=== PATIENT | female | born 1960 | race Caucasian/White ===

== ENCOUNTER 2020-10-11 19:29 | Emergency (ER) | payer OTHER ==
[~2020-10-11] VITALS: Ht 175.3 cm; Wt 188.7 kg
[~2020-10-11 19:29] MED LIST: ALBU18HF2 IH; ATEN25TA PO; ESTR1TAB21 PO; FURO20TA4 PO; GLIP5TAB13 PO; HYDR-4354 PO; LEVO175T2 PO; LOSA50TA39 PO; METF-440 PO; NPH,100V SQ; PROG100C15 PO; ZOLP5TAB8 PO
[2020-10-11 20:00] LABS: BASOPHILS # (AUTO) 0.1 K/uL (0.0-0.2); BASOPHILS % (AUTO) 1.2 % (0.0-2.0); EOSINOPHILS % (AUTO) 1.5 % (0.0-6.0); HEMATOCRIT 33 % (33-45); HEMOGLOBIN 10.4 g/dL (11.5-14.8); LYMPHOCYTES # (AUTO) 1.1 K/uL (0.8-4.8); LYMPHOCYTES % (AUTO) 9.7 % (20.0-44.0); MEAN CORPUSCULAR HGB CONC 32 g/dl (31.0-36.0); MEAN CORPUSCULAR VOLUME 85 fL (82-100); MONOCYTES # (AUTO) 0.7 K/uL (0.1-1.30); MONOCYTES % (AUTO) 6.5 % (2.0-12.0); NEUTROPHILS # (AUTO) 9.1 K/uL (1.8-8.9); NEUTROPHILS % (AUTO) 81.1 % (43.0-81.0); PLATELET COUNT (AUTO) 285 K/uL (150-450); RED BLOOD CELL COUNT(AUTO) 3.91 MIL/uL (4.0-5.2); WHITE BLOOD COUNT (AUTO) 11.2 K/uL (4.3-11.0)
--- NOTE | 2020-10-11 20:02 | NUR ---
VILMA FROM HOME TO ER BED 7. AAOX4. NOT IN DISTRESS. BROUGHT IN FOR LOWER ABD PAIN, SWELLING, REDNESS AND TENDERNESS TO TOUCH. PT ALSO VERBALIZES THAT SHE GOT SOB WHEN SHE DOES ACTIVITY. PT ALSO REPORTS THAT SHE NOTED THAT HER LOWER LEG IS GETTING SWOLLEN. PT IS BASELINE O2 USER AT HOME. SHE IS CURRENTLY ON 2LPM VIA NC, SATTING @ 90-94%. WAS AT THE BEDSIDE FOR EVAL. ORDERS RECEIVED, NOTED AND CARRIED OUT.
[2020-10-11 20:09] LABS: CALCIUM, SERUM 8.3 mg/dL (8.5-10.1); CREATININE 0.8 mg/dL (0.6-1.3); POTASSIUM 4.1 mmol/L (3.5-5.1)
[2020-10-11 20:22] LABS: ALBUMIN 2.9 g/dL (3.4-5.0); BILIRUBIN,DIRECT 0.2 mg/dL (0.0-0.2); BILIRUBIN,TOTAL 0.5 mg/dL (0.2-1.0); TOTAL PROTEIN, SERUM 6.7 g/dL (6.4-8.2)
--- NOTE | 2020-10-11 20:45 | NUR ---
PAGED EPRP PER DR GAYLA DELGADILLO
--- NOTE | 2020-10-11 20:46 | NUR ---
DR GRAHAM ON THE PHONE W/ Marion CRUZ FROM [place]
--- NOTE | 2020-10-11 22:14 | NUR ---
PT GOT ACCEPTED AT [facility] BY DR RILEY. PT GOING TO ER. # FOR REPORT: [phone]
[2020-10-11 22:19] VITALS: BP 143/68
--- NOTE | 2020-10-11 22:24 | NUR ---
REPORT GIVEN TO MARTA GLOVER FOR KAUSHIK AT THE [facility] ER
--- NOTE | 2020-10-11 22:30 | NUR ---
PT LEFT ON [facility] WITH 4 EMT FOR BARIATRIC [place] TRANSPORT TO [facility]. PT IS IN STABLE CONDITION FOR TRANSPORT. NAD NOTED PRIOR TO DEPARTURE
== END 2020-10-11 22:41 | disposition short-term general hospital (02) ==
LOC: ER 19:30
DX: R10.30 Lower abdominal pain, unspecified (principal); E66.01 Morbid (severe) obesity due to excess calories; Z68.44 Body mass index [BMI] 60.0-69.9, adult; R06.02 Shortness of breath; Z20.822 Contact with and (suspected) exposure to COVID-19; I44.7 Left bundle-branch block, unspecified; D68.1 Hereditary factor XI deficiency; G47.33 Obstructive sleep apnea (adult) (pediatric); I10 Essential (primary) hypertension; E89.0 Postprocedural hypothyroidism; Z88.0 Allergy status to penicillin; M19.90 Unspecified osteoarthritis, unspecified site; E11.9 Type 2 diabetes mellitus without complications; Z79.84 Long term (current) use of oral hypoglycemic drugs
CPT/HCPCS: 36415; 71045; 80048; 80076; 83880; 84484; 85025; 87426; 93005; 99285; C9803

== ENCOUNTER 2020-11-04 00:45 | Emergency (ER) | payer OTHER ==
[~2020-11-04] VITALS: Ht 167.6 cm; Wt 197.3 kg
--- NOTE | 2020-11-04 00:45 | NUR ---
PT AAOX4. BIBRA FROM HOME FOR WORSENING ABD PAIN AND SOB. PLACED IN BED 11 ON MONITOR AND PULSE OX. ON 2L NC. AWAITING ORDERS.
[2020-11-04] MEDS ORDERED: KETOROLAC TROMETHAMINE 15 MG/ML VIAL ONE (01:23)
[2020-11-04 01:26] LABS: BASOPHILS # (AUTO) 0.2 K/uL (0.0-0.2); BASOPHILS % (AUTO) 1.1 % (0.0-2.0); EOSINOPHILS % (AUTO) 1.5 % (0.0-6.0); HEMATOCRIT 32 % (33-45); HEMOGLOBIN 9.8 g/dL (11.5-14.8); LYMPHOCYTES # (AUTO) 1.4 K/uL (0.8-4.8); LYMPHOCYTES % (AUTO) 10.2 % (20.0-44.0); MEAN CORPUSCULAR HGB CONC 31 g/dl (31.0-36.0); MEAN CORPUSCULAR VOLUME 85 fL (82-100); MONOCYTES % (AUTO) 7.6 % (2.0-12.0); NEUTROPHILS # (AUTO) 10.9 K/uL (1.8-8.9); NEUTROPHILS % (AUTO) 79.6 % (43.0-81.0); PLATELET COUNT (AUTO) 397 K/uL (150-450); RED BLOOD CELL COUNT(AUTO) 3.73 MIL/uL (4.0-5.2); WHITE BLOOD COUNT (AUTO) 13.7 K/uL (4.3-11.0)
[2020-11-04] MEDS: KETOROLAC TROMETHAMINE INJ 30 MG/ML VIAL IV ONE (01:26)
[2020-11-04 01:34] LABS: CALCIUM, SERUM 7.7 mg/dL (8.5-10.1); CARBON DIOXIDE 35 mmol/L (21-32); CHLORIDE 93 mmol/L (98-107); CREATININE 1.1 mg/dL (0.6-1.3); GLUCOSE 76 mg/dL (74-106); POTASSIUM 5.4 mmol/L (3.5-5.1); SODIUM SERUM 130 mmol/L (136-145); UREA NITROGEN, BLOOD 26 mg/dL (7-18)
[2020-11-04 01:50] LABS: ALANINE AMINOTRANSFERASE 19 U/L (12-78); ALKALINE PHOSPHATASE 110 U/L (46-116); ASPARTATE AMINOTRANSFERASE 23 U/L (15-37); BILIRUBIN,DIRECT 0.3 mg/dL (0.0-0.2); BILIRUBIN,TOTAL 0.6 mg/dL (0.2-1.0); TOTAL PROTEIN, SERUM 6.4 g/dL (6.4-8.2)
--- NOTE | 2020-11-04 02:39 | NUR ---
AMBULATED TO THE RESTROOM AND BACK.
--- NOTE | 2020-11-04 02:49 | NUR ---
MANJU EPRP PAGED PER DR SOFIA.
[2020-11-04] MEDS ORDERED: MORPHINE SULFATE INJ 4 MG/ML DISP.SYRIN ONE (03:03)
[2020-11-04] MEDS: MORPHINE SULFATE INJ 2 MG/ML DISP.SYRIN IV ONE (03:06)
--- NOTE | 2020-11-04 03:30 | NUR ---
Macho ni in ED - 11/04/20 at 0331 by [facility] TRANSFER INFORMATION PT ACCEPTED AT [facility] CLYDE BREWER PHONE NUMBER FOR REPORT [facility]
--- NOTE | 2020-11-04 03:31 | NUR ---
TRANSFER INFORMATION PT ACCEPTED AT [facility] ER ACCEPTING MD BREWER PHONE NUMBER FOR REPORT [facility] BARIATRIC TRANSPORT ETA [phone]
[2020-11-04 03:44] VITALS: BP 125/53
--- NOTE | 2020-11-04 03:49 | NUR ---
REPORT GIVEN TO JAIRON LOZANO FOR KAUSHIK
--- NOTE | 2020-11-04 09:21 | NUR ---
TRANSPORTED TO [facility], STABLE CONDITION.
== END 2020-11-04 09:23 | disposition short-term general hospital (02) ==
LOC: ER 00:46
DX: R10.31 Right lower quadrant pain (principal); R06.02 Shortness of breath; E66.01 Morbid (severe) obesity due to excess calories; R60.9 Edema, unspecified; I11.0 Hypertensive heart disease with heart failure; I50.9 Heart failure, unspecified; E11.9 Type 2 diabetes mellitus without complications; E03.9 Hypothyroidism, unspecified; Z68.45 Body mass index [BMI] 70 or greater, adult; Z86.19 Personal history of other infectious and parasitic diseases; Z98.890 Other specified postprocedural states; Z88.0 Allergy status to penicillin; Z79.84 Long term (current) use of oral hypoglycemic drugs; Z79.899 Other long term (current) drug therapy
CPT/HCPCS: 36415; 71045; 76705; 80048; 80076; 83880; 84484; 85025; 96374; 96375; 99285; J1885; J2270

== ENCOUNTER 2022-03-13 19:15 | Inpatient (IN) | payer OTHER ==
[~2022-03-13] VITALS: Ht 167.6 cm; Wt 182.8 kg
--- NOTE | 2022-03-13 19:30 | NUR ---
VILMA FROM HOME C/O SOB STARTED TODAY. PLACED ON BED, AAOX4, DYSPNEIC RR- 20 SATURATING AT 96% WITH 2LIT O2 VIA NC.
--- NOTE | 2022-03-13 19:56 | NUR ---
BLOOD DRAWN AND SENT TO LAB
--- NOTE | 2022-03-13 20:09 | NUR ---
SWAB FOR COVID19 SENT TO LAB
[2022-03-13 20:33] LABS: BASOPHILS # (AUTO) 0.1 K/uL (0.0-0.2); BASOPHILS % (AUTO) 0.5 % (0.0-2.0); EOSINOPHILS % (AUTO) 2.3 % (0.0-6.0); HEMATOCRIT 37 % (33-45); HEMOGLOBIN 11.2 g/dL (11.5-14.8); LYMPHOCYTES # (AUTO) 0.9 K/uL (0.8-4.8); LYMPHOCYTES % (AUTO) 7.9 % (20.0-44.0); MEAN CORPUSCULAR HGB CONC 31 g/dl (31.0-36.0); MEAN CORPUSCULAR VOLUME 86 fL (82-100); MONOCYTES # (AUTO) 0.9 K/uL (0.1-1.30); MONOCYTES % (AUTO) 7.6 % (2.0-12.0); NEUTROPHILS # (AUTO) 9.2 K/uL (1.8-8.9); NEUTROPHILS % (AUTO) 81.7 % (43.0-81.0); PLATELET COUNT (AUTO) 309 K/uL (150-450); WHITE BLOOD COUNT (AUTO) 11.2 K/uL (4.3-11.0)
[2022-03-13 20:37] LABS: CALCIUM, SERUM 9.4 mg/dL (8.5-10.1); CHLORIDE 99 mmol/L (98-107); CREATININE 1.1 mg/dL (0.6-1.3); GLUCOSE 130 mg/dL (74-106); POTASSIUM 4.6 mmol/L (3.5-5.1); SODIUM SERUM 138 mmol/L (136-145); UREA NITROGEN, BLOOD 25 mg/dL (7-18)
--- NOTE | 2022-03-13 20:46 | NUR ---
TROP 104
[2022-03-13 20:49] LABS: ALANINE AMINOTRANSFERASE 12 U/L (12-78); ALBUMIN 3.5 g/dL (3.4-5.0); ALKALINE PHOSPHATASE 167 U/L (46-116); ASPARTATE AMINOTRANSFERASE 21 U/L (15-37); BILIRUBIN,DIRECT 0.2 mg/dL (0.0-0.2); BILIRUBIN,TOTAL 0.4 mg/dL (0.2-1.0); TOTAL PROTEIN, SERUM 7.3 g/dL (6.4-8.2)
[2022-03-13 20:53] LABS: CARBON DIOXIDE 41 mmol/L (21-32)
[2022-03-13] MEDS ORDERED: ASPIRIN 81 MG TAB.CHEW PO ONE (21:00)
[2022-03-13] MEDS ORDERED: ASPIRIN 81 MG TAB.CHEW ONE (21:02)
[2022-03-13] MEDS ORDERED: FUROSEMIDE 40 MG/4 ML VIAL IV ONE (21:30)
[2022-03-13] MEDS ORDERED: FUROSEMIDE 40 MG/4 ML VIAL ONE (22:02)
--- NOTE | 2022-03-13 22:02 | NUR ---
RT CALLED FOR ABG
--- NOTE | 2022-03-13 22:33 | NUR ---
STRAIGHT CATH INSERTED. PT IS COMFORTABLE.
--- NOTE | 2022-03-13 23:01 | NUR ---
PAGED EPRP DOCTOR
--- NOTE | 2022-03-13 23:21 | NUR ---
DR FAN ON THE PHONE WITH [facility]
[2022-03-14] VITALS (11 sets, daily range): BP systolic 111–129; BP diastolic 55–81
[2022-03-14] MEDS ORDERED: MAG HYDROX/AL HYDROX/SIMETH 30 ML UDC PO PRN
[2022-03-14] MEDS ORDERED: MAGNESIUM HYDROXIDE 30 ML UDC PO PRN
[2022-03-14] MEDS ORDERED: *INSULIN REGULAR(HUMULIN R)HUM 100 UNIT/ML VIAL SQ PRN
[2022-03-14] MEDS ORDERED: ACETAMINOPHEN 325 MG TABLET PO PRN
[2022-03-14] MEDS ORDERED: TEMAZEPAM 15 MG CAPSULE PO PRN
[2022-03-14] MEDS ORDERED: Z GUARD REMEDY 4 OZ OINT TP PRN
[2022-03-14] MEDS ORDERED: ONDANSETRON HCL/PF 4 MG/2 ML VIAL IVP PRN
[2022-03-14] MEDS ORDERED: INSULIN REGULAR, HUMAN 100 UNIT/ML 3 ML VIAL SQ PRN
--- NOTE | 2022-03-14 00:54 | NUR ---
PHOTOGRAPHIC ENLARGER OPERATOR AT PT'S BEDSIDE
[2022-03-14] MEDS ORDERED: ALBUTEROL FS 2.5 MG/3 ML VIAL.NEB NEB PRN (01:30)
[2022-03-14] MEDS ORDERED: ENOXAPARIN SODIUM 150 MG/ML DISP.SYRIN SQ ONE (01:30)
--- NOTE | 2022-03-14 01:41 | NUR ---
NEEDS ATTENDED. POSITIONED COMFORTABLY
[2022-03-14] MEDS ORDERED: ENOXAPARIN SODIUM 60 MG/0.6 ML DISP.SYRIN SQ ONE (01:54)
[2022-03-14] MEDS ORDERED: ENOXAPARIN SODIUM 100 MG/ML DISP.SYRIN SQ ONE (01:54)
--- NOTE | 2022-03-14 01:59 | NUR ---
CLARIFIED WITH DELL ARRIAGA ABOUT THE DOSE OF LOVENOX. SHE ORDERED TO GIVE LOVENOX 150MG SQ
--- NOTE | 2022-03-14 03:50 | NUR ---
ABG DONE AT BEDSIDE
[2022-03-14 03:56] LABS: ABG BASE EXCESS 7.1 mmol/L; ABG PCO2 81.5 mmHg (35.0-45.0); ABG PH 7.269 (7.350-7.450); COHb 0.7 % (0.5-1.5); MetHb 0.3 % (0.0-1.5); O2Hb 96.9 % (94.0-97.0); SITE, ABG Right Radial; VENT MODE, BG ST 15/5 16 40%
[2022-03-14 04:29] LABS: BASOPHILS % (MANUAL) 0 % (0.0-2.0); EOSINOPHILS % (MANUAL) 3 % (0-4)
[2022-03-14 04:30] LABS: BAND % (MANUAL) 3 % (0.0-5.0); LYMPHOCYTES % (MANUAL) 8 % (16-48); NEUTROPHILS % (MANUAL) 77 (42-76)
[2022-03-14 04:31] LABS: MONOCYTES % (MANUAL) 9 % (0-11.0)
[2022-03-14 05:09] LABS: BASOPHILS # (AUTO) 0.1 K/uL (0.0-0.2); BASOPHILS % (AUTO) 0.7 % (0.0-2.0); EOSINOPHILS % (AUTO) 2.7 % (0.0-6.0); HEMATOCRIT 35 % (33-45); HEMOGLOBIN 10.7 g/dL (11.5-14.8); LYMPHOCYTES # (AUTO) 1.1 K/uL (0.8-4.8); LYMPHOCYTES % (AUTO) 13.4 % (20.0-44.0); MEAN CORPUSCULAR HGB CONC 31 g/dl (31.0-36.0); MEAN CORPUSCULAR VOLUME 86 fL (82-100); MONOCYTES # (AUTO) 0.7 K/uL (0.1-1.30); MONOCYTES % (AUTO) 8.7 % (2.0-12.0); NEUTROPHILS # (AUTO) 6.3 K/uL (1.8-8.9); NEUTROPHILS % (AUTO) 74.5 % (43.0-81.0); PLATELET COUNT (AUTO) 285 K/uL (150-450); RED BLOOD CELL COUNT(AUTO) 4.01 MIL/uL (4.0-5.2); WHITE BLOOD COUNT (AUTO) 8.5 K/uL (4.3-11.0)
[2022-03-14 05:24] LABS: ALBUMIN 3.2 g/dL (3.4-5.0); BILIRUBIN,TOTAL 0.5 mg/dL (0.2-1.0); MAGNESIUM 1.7 mg/dL (1.8-2.4); PHOSPHORUS 5.8 mg/dL (2.5-4.9); POTASSIUM 4.3 mmol/L (3.5-5.1); TOTAL PROTEIN, SERUM 6.9 g/dL (6.4-8.2)
--- NOTE | 2022-03-14 05:39 | NUR ---
POSITIONED COMFORTABLY. NEEDS ATTENDED
[2022-03-14] MEDS ORDERED: HYDROCODONE/APAP 10/325MG TABLET PO PRN ×2 (07:00)
[2022-03-14] MEDS ORDERED: HYDROCODONE/APAP 5/325MG TABLET PO PRN (07:00)
[2022-03-14] MEDS ORDERED: glipiZIDE 5 MG TABLET PO SCH (07:30)
[2022-03-14] MEDS: glipiZIDE 5 MG TABLET PO SCH ×2 (07:30→16:30)
[2022-03-14] MEDS: LEVOTHYROXINE SODIUM 175 MCG TABLET PO SCH (07:30)
[2022-03-14] MEDS: METFORMIN 500 MG TABLET PO SCH ×2 (08:00→17:38)
[2022-03-14] MEDS ORDERED: HYDROCODONE/APAP 10/325MG TABLET ONE (08:02)
[2022-03-14] MEDS: BLOOD SUGAR DIAGNOSTIC 1 EACH STRIP VI SCH ×4 (08:04→21:48)
--- NOTE | 2022-03-14 08:21 | NUR ---
[facility] BED ORDERED
[2022-03-14] MEDS ORDERED: METO25TA6 PO (08:24)
[2022-03-14] MEDS ORDERED: FURO20TA4 PO (08:24)
[2022-03-14] MEDS ORDERED: TRAZ-182 PO (08:24)
[2022-03-14] MEDS ORDERED: LEVO200T8 PO (08:24)
[2022-03-14] MEDS ORDERED: ASPI-1420 PO (08:24)
[2022-03-14] MEDS ORDERED: COLL30OI TP (08:24)
[2022-03-14] MEDS ORDERED: NYST15PO4 TP (08:24)
[2022-03-14] MEDS ORDERED: FERR325T23 PO (08:25)
[2022-03-14] MEDS ORDERED: THIO300C PO (08:25)
[2022-03-14] MEDS ORDERED: DOCU-141 PO (08:25)
[2022-03-14] MEDS ORDERED: BISA5TAB10 PO (08:25)
[2022-03-14] MEDS ORDERED: ACET-2605 PO (08:25)
[2022-03-14] MEDS ORDERED: MULT1TAB70 PO (08:25)
[2022-03-14] MEDS ORDERED: KETO125S TP (08:25)
[2022-03-14] MEDS ORDERED: VITA1TAB56 PO (08:25)
[2022-03-14] MEDS ORDERED: METFORMIN 500 MG TABLET ONE (08:27)
--- NOTE | 2022-03-14 08:27 | NUR ---
room 255
--- NOTE | 2022-03-14 08:33 | NUR ---
report given to jb pendleton
[2022-03-14] MEDS: PANTOPRAZOLE 40 MG VIAL IV SCH (08:51)
[2022-03-14] MEDS ORDERED: PROGESTERONE MICRONIZED PO SCH (09:00)
[2022-03-14] MEDS: ESTRADIOL 1 MG TABLET PO SCH (09:00)
[2022-03-14] MEDS: LOSARTAN POTASSIUM 50 MG TABLET PO SCH (09:00)
[2022-03-14] MEDS: ATENOLOL 25 MG TABLET PO SCH (09:00)
--- NOTE | 2022-03-14 09:18 | NUR ---
moved to inpatient room per acls protocol.
--- NOTE | 2022-03-14 09:23 | NUR ---
Admit to ICU for SOB. Respiratory Distress Resolved. On 2L NC O2 Sat 98% VSS. Pt AAOx4. Follow up Cardiac Work up for elevated Troponin. Cont with Plan of care
[2022-03-14] MEDS: DEXTROSE 50%-WATER 50 ML DISP.SYRIN IV PRN (11:17)
[2022-03-14] MEDS ORDERED: Magnesium 1GM/D5W 100ML PREMIX 200 ML IV ONE (11:34)
[2022-03-14] MEDS: Magnesium 1GM/D5W 100ML PREMIX 100 ML IV SCH ×2 (11:45→12:47)
[2022-03-14 12:08] LABS: ABG BASE EXCESS 3.4 mmol/L; ABG OXYGEN SATURATION 95.5 % (92.0-98.5); ABG PCO2 63.9 mmHg (35.0-45.0); ABG PH 7.306 (7.350-7.450); ABG PO2 88.3 mmHg (75.0-100.0); AaDO2 50.5 mmHg; COHb 1.5 % (0.5-1.5); MetHb 0.1 % (0.0-1.5); SITE, ABG Right Radial; VENT MODE, BG 20/5 RR16 30%
[2022-03-14] MEDS: ENOXAPARIN SODIUM 120 MG/0.8 ML DISP.SYRIN SQ SCH (14:59)
--- NOTE | 2022-03-14 18:00 | NUR ---
José Luis when more stable Admit to ICU Continue rescue BiPAP. wean off Bipap when able Sleep apnea noted. Lovenox 1 mg/kg administered as ordered Cardiology consult - Dr Pyle. Pt with positive Troponin Pulm consult done by Dr Larkin. Recommendations and orders noted Episodes of hypoglycemia. Resume Diet. Sliding scale insulin Adequate Intake and output. Huddleston to gravity. Slight trauma noted. Inserted in ED Follow up Labs. Mag replaced as needed Cont with plan of care.
--- NOTE | 2022-03-14 19:30 | NUR ---
RN NOTE RECEIVED PT IN BED, AWAKE, A/O X 4. ABLE TO VERBALIZE NEEDS. CURRENTLY ON O2 VIA NC @ 2LPM. PT TOLERATING WELL, O2 SAT @ 95%. TELE MONITOR SHOWS SR WITH HR IN THE 90s. NO S/SX OF ACUTE RESPI DISTRESS NOTED AT THIS TIME. NO SOB, BREATHING IS EVEN AND UNLABORED. IV ACCESS NOTED ON DAVID ML AND LAC, NO FLUIDS INFUSING. HEATH CATH IN PLACE DRAINING YELLOW URINE BY GRAVITY. ALL SAFETY MEASURES IN PLACE: BED LOCKED IN LOW POSITION, BED ALARM ON, SR UP X 2, CALL LIGHT WITHIN REACH. WILL CONTINUE TO MONITOR PT.
[2022-03-14] MEDS: FUROSEMIDE 20 MG/2 ML VIAL IV SCH (19:37)
[2022-03-14] MEDS: HYDROCODONE/APAP 5/325MG TABLET PO PRN (20:15)
--- NOTE | 2022-03-14 20:30 | NUR ---
RN NOTE PT COMPLAINING OF PAIN IN HER LOWER LEGS. WANTS NORCO TO CALM HER NERVES. GAVE MED ORDERED. WILL CONTINUE TO MONITOR.
--- NOTE | 2022-03-14 22:00 | NUR ---
RN NOTE PT TRANSFERRED TO A [facility] BED.
[2022-03-15] VITALS (24 sets, daily range): BP systolic 93–131; BP diastolic 47–85
[2022-03-15] MEDS: ENOXAPARIN SODIUM 120 MG/0.8 ML DISP.SYRIN SQ SCH ×2 (01:37→14:00)
--- NOTE | 2022-03-15 01:41 | NUR ---
RN NOTE NEW TROPONIN RESULT: 63, DOWN FROM 101.
[2022-03-15] MEDS: HYDROCODONE/APAP 5/325MG TABLET PO PRN ×4 (02:15→22:21)
[2022-03-15 05:41] LABS: BASOPHILS # (AUTO) 0.1 K/uL (0.0-0.2); BASOPHILS % (AUTO) 0.9 % (0.0-2.0); EOSINOPHILS % (AUTO) 3.2 % (0.0-6.0); HEMATOCRIT 34 % (33-45); HEMOGLOBIN 10.4 g/dL (11.5-14.8); LYMPHOCYTES # (AUTO) 1.7 K/uL (0.8-4.8); MEAN CORPUSCULAR HGB CONC 31 g/dl (31.0-36.0); MEAN CORPUSCULAR VOLUME 86 fL (82-100); MONOCYTES # (AUTO) 0.1 K/uL (0.1-1.30); MONOCYTES % (AUTO) 0.9 % (2.0-12.0); NEUTROPHILS # (AUTO) 7.6 K/uL (1.8-8.9); PLATELET COUNT (AUTO) 264 K/uL (150-450); RED BLOOD CELL COUNT(AUTO) 3.91 MIL/uL (4.0-5.2); WHITE BLOOD COUNT (AUTO) 9.8 K/uL (4.3-11.0)
[2022-03-15 05:52] LABS: ALBUMIN 3.1 g/dL (3.4-5.0); BILIRUBIN,TOTAL 0.5 mg/dL (0.2-1.0); CALCIUM, SERUM 8.1 mg/dL (8.5-10.1); CREATININE 0.9 mg/dL (0.6-1.3); POTASSIUM 4.5 mmol/L (3.5-5.1); TOTAL PROTEIN, SERUM 6.7 g/dL (6.4-8.2)
--- NOTE | 2022-03-15 06:28 | NUR ---
RN NOTE NO SIGNIFICANT CHANGE T/O THE NIGHT. PT DESATS WHEN ASLEEP EVEN WITH BIPAP ON. PT SAYS SHE FEELS NO PAIN WHATSOEVER WHEN IT HAPPENS. KEPT BIPAP ON THE WHOLE NIGHT TILL 6 AM TODAY. ALL OTHER VS STABLE. ALL DUE MEDS GIVEN. NEEDS ATTENDED TO. PM CARE DONE. TURNED AND REPOSITIONED. WILL ENDORSE TO AM SHIFT NURSE FOR KAUSHIK.
[2022-03-15] MEDS: LEVOTHYROXINE SODIUM 175 MCG TABLET PO SCH (07:33)
[2022-03-15] MEDS: METFORMIN 500 MG TABLET PO SCH ×2 (07:34→17:41)
[2022-03-15] MEDS: BLOOD SUGAR DIAGNOSTIC 1 EACH STRIP VI SCH ×3 (07:34→17:41)
[2022-03-15] MEDS: glipiZIDE 5 MG TABLET PO SCH ×2 (07:34→16:20)
[2022-03-15] MEDS: ESTRADIOL 1 MG TABLET PO SCH (08:29)
[2022-03-15] MEDS: FUROSEMIDE 20 MG/2 ML VIAL IV SCH ×2 (08:29→16:20)
[2022-03-15] MEDS: ATENOLOL 25 MG TABLET PO SCH (08:29)
[2022-03-15] MEDS: PANTOPRAZOLE 40 MG VIAL IV SCH (08:30)
[2022-03-15] MEDS: LOSARTAN POTASSIUM 50 MG TABLET PO SCH (08:30)
[2022-03-15 09:31] LABS: ABG BASE EXCESS 9.5 mmol/L; ABG OXYGEN SATURATION 92.9 % (92.0-98.5); ABG PCO2 69.8 mmHg (35.0-45.0); ABG PH 7.347 (7.350-7.450); AaDO2 47.3 mmHg; COHb 1.6 % (0.5-1.5); MetHb 0.1 % (0.0-1.5); O2Hb 91.3 % (94.0-97.0); SITE, ABG Right Radial; VENT MODE, BG Nasal Cannula
[2022-03-15] MEDS ORDERED: ESTR1TAB28 PO (11:01)
[2022-03-15] MEDS ORDERED: APIX5TAB PO (11:01)
[2022-03-15] MEDS ORDERED: ATEN25TA PO (11:01)
--- NOTE | 2022-03-15 12:40 | NUR ---
Awaiting call back from [place] transfer center @ [phone] Elbert @ this time. for transfer to [place]. Pt remains stable for transfer. Discharge order in place. Cont with plan of care
--- NOTE | 2022-03-15 14:49 | NUR ---
Held Lovenox. Hematuria. Slight bleeding / "Streaks of Blood" noted in Huddleston Cath
[2022-03-15] MEDS: DEXTROSE 50%-WATER 50 ML DISP.SYRIN IV PRN (17:35)
--- NOTE | 2022-03-15 17:41 | NUR ---
Metformin held secondary to episodes of hypoglycemia. Pt remains awake alert oriented. Able to tolerate Juice PO. D50 IVP given per protocol
--- NOTE | 2022-03-15 18:34 | NUR ---
Awaiting [facility] transfer when bed available. cleared by Dr Larkin. Discharged to [facility] per Dr Hernandez Remains in ICU @ this time. Continue nocturnal BiPAP. tolerate 2L NC in am while awake Sleep apnea noted. Cont Lovenox 1 mg/kg as ordered F/U Cardiology consult Dr Pyle. Cont Lasix as ordered. Replace Mag electrolytes Episodes of hypoglycemia. Resume Diet. Hypoglycemia protocol initiated Adequate Intake and output. Huddleston to gravity. Follow up Labs. Mag replaced as needed Cont with plan of care.
[2022-03-15] MEDS ORDERED: Magnesium 1GM/D5W 100ML PREMIX 100 ML IV ONE (19:00)
--- NOTE | 2022-03-15 19:05 | NUR ---
RN OPENING NOTES RECEIVED PATIENT ON BED AWAKE, ALERT AND VERBALLY RESPONSIVE, ON NASAL CANULA @ 2 LPM, SATING AT 93%, RESPIRATORY EVEN AND UNLABORED NO SOB NOTED. PATIENT NOTED WITH DAVID MIDLINE, FLUSHED WITH NS. NO S/S OF INFILTRATION NOTED. ON HEATH CATHETER INTACT DRAINING WITH YELLOW URINE WITH HEMATURIA VIA GRAVITY. ALL SAFETY PRECAUTION PROVIDED. BED IN LOWEST POSITION, LOCKED. BED ALRM ARMED. CALL LIGHT WITH IN REACH.
[2022-03-15] MEDS ORDERED: Magnesium 1GM/D5W 100ML PREMIX PIGGYBACK IV ONE (21:00)
--- NOTE | 2022-03-15 22:21 | NUR ---
RN NOTES PATIENT C/O 7/10 PAIN IN THE LEG, SIMONECO GIVEN
--- NOTE | 2022-03-15 22:28 | NUR ---
RN NOTES NOTED WITH BLOOD SUGAR 90 mg/dL, NO INSULIN COVERAGE PER SLIDING SCALE, NO S/S OF HYPOGLYCEMIA NOTED. CONTINUE TO MONITOR.
--- NOTE | 2022-03-15 23:10 | NUR ---
RN NOTES PATIENT DISCHARGE TO [facility], PICKED UP BY 4 EMT'S VIA [employer]. HEALTH TEACHING DONE. TOOK ALL HER BELONGINGS. V/S TAKEN AND RECORDED. TEMP- 98.1, BP- 112/62, HR- 75, RR- 18, O2SAT- 93%. LEFT HOSPITAL IN STABLE CONDITION. Addendum: 03/16/22 at 0043 by JUVE SMITH RN RN NOTES REPORT GIVEN TO MARTA MANZO FROM [facility]
[2022-03-16] MEDS ORDERED: PANTOPRAZOLE 40 MG TABLET.DR PO SCH (09:00)
== END 2022-03-15 23:10 | disposition short-term general hospital (02) | DRG 280 ==
LOC: ER 19:16 → TRANSITION 03-14 01:11 → ICU 03-14 08:17
PROVIDERS: ADMIT Nurse Practitioner Acute Care; ATTEND Internal Medicine
PROC: 05HD33Z Insertion of Infusion Device into Right Cephalic Vein, Percutaneous Approach (ICD-10-PCS; principal; 2022-03-14)
PROC: 5A09357 Assistance with Respiratory Ventilation, Less than 24 Consecutive Hours, Continuous Positive Airway Pressure (ICD-10-PCS; 2022-03-14)
DX: I11.0 Hypertensive heart disease with heart failure (principal); I50.33 Acute on chronic diastolic (congestive) heart failure; I21.A1 Myocardial infarction type 2; J96.21 Acute and chronic respiratory failure with hypoxia; J96.22 Acute and chronic respiratory failure with hypercapnia; E66.2 Morbid (severe) obesity with alveolar hypoventilation; Z68.45 Body mass index [BMI] 70 or greater, adult; I48.92 Unspecified atrial flutter; I47.1 Supraventricular tachycardia; E87.29 Other acidosis; E03.9 Hypothyroidism, unspecified; E11.40 Type 2 diabetes mellitus with diabetic neuropathy, unspecified; E78.5 Hyperlipidemia, unspecified; Z79.4 Long term (current) use of insulin; Z79.84 Long term (current) use of oral hypoglycemic drugs; Z79.899 Other long term (current) drug therapy; Z87.891 Personal history of nicotine dependence; Z99.81 Dependence on supplemental oxygen; M19.90 Unspecified osteoarthritis, unspecified site; Z88.0 Allergy status to penicillin
CPT/HCPCS: 36410; 36415; 36600; 71045-TC; 80048-TC; 80053-TC; 80076-TC; 82803-TC; 82962-TC; 83735-TC; 83880; 84100-TC; 84484-TC; 85025-TC; 85378-TC; 87081-TC; 93307-TC; 93970-TC; 94660; C9113; C9803; G0378; J1650; J1815; J1940; J2405; J3475; J7050

== ENCOUNTER 2022-03-20 13:27 | Emergency (ER) | payer OTHER ==
[~2022-03-20] VITALS: Ht 175.3 cm; Wt 185.5 kg
[~2022-03-20 13:27] MED LIST changes: +ACET-2605 PO; -ALBU18HF2 IH; +APIX5TAB PO; +ASPI-1420 PO; +BISA5TAB10 PO; +COLL30OI TP; +DOCU-141 PO; -ESTR1TAB21 PO; +ESTR1TAB28 PO; +FERR325T23 PO; -GLIP5TAB13 PO; +KETO125S TP; -LEVO175T2 PO; +LEVO200T8 PO; +METO25TA6 PO; +MULT1TAB70 PO; +NYST15PO4 TP; -PROG100C15 PO; +THIO300C PO; +TRAZ-182 PO; +VITA1TAB56 PO; -ZOLP5TAB8 PO
--- NOTE | 2022-03-20 15:07 | NUR ---
CALLED [facility] [phone] DR. BURNETTE WILL CALL FOR PEER TO PEER.
[2022-03-20 15:46] LABS: BASOPHILS % (AUTO) 0.2 % (0.0-2.0); EOSINOPHILS % (AUTO) 0.4 % (0.0-6.0); HEMATOCRIT 38 % (33-45); HEMOGLOBIN 11.6 g/dL (11.5-14.8); LYMPHOCYTES # (AUTO) 0.6 K/uL (0.8-4.8); LYMPHOCYTES % (AUTO) 4.6 % (20.0-44.0); MEAN CORPUSCULAR HGB CONC 31 g/dl (31.0-36.0); MEAN CORPUSCULAR VOLUME 87 fL (82-100); MONOCYTES % (AUTO) 8.1 % (2.0-12.0); NEUTROPHILS # (AUTO) 10.9 K/uL (1.8-8.9); NEUTROPHILS % (AUTO) 86.7 % (43.0-81.0); PLATELET COUNT (AUTO) 307 K/uL (150-450); RED BLOOD CELL COUNT(AUTO) 4.32 MIL/uL (4.0-5.2); WHITE BLOOD COUNT (AUTO) 12.6 K/uL (4.3-11.0)
[2022-03-20 16:22] LABS: ALBUMIN 3.4 g/dL (3.4-5.0); BILIRUBIN,DIRECT 0.5 mg/dL (0.0-0.2); BILIRUBIN,TOTAL 0.8 mg/dL (0.2-1.0); CALCIUM, SERUM 8.1 mg/dL (8.5-10.1); CREATININE 1.2 mg/dL (0.6-1.3); POTASSIUM 5.4 mmol/L (3.5-5.1); TOTAL PROTEIN, SERUM 7.3 g/dL (6.4-8.2)
--- NOTE | 2022-03-20 18:18 | NUR ---
COMPENSATOR WORKER AT BEDSIDE
[2022-03-20] MEDS ORDERED: MORPHINE SULFATE INJ 2 MG/ML DISP.SYRIN IV ONE (20:30)
[2022-03-20] MEDS ORDERED: MORPHINE SULFATE INJ 4 MG/ML DISP.SYRIN ONE (20:37)
--- NOTE | 2022-03-21 00:52 | NUR ---
PER [facility]BLE [facility] GET [facility]NT[facility] 7[facility]
[2022-03-21 05:02] LABS: BILIRUBIN,URINE 1+ (NEGATIVE); COLOR,URINE YELLOW (YELLOW); LEUKOCYTE ESTERASE ,URINE TRACE (NEGATIVE); NITRITE, URINE POSITIVE (NEGATIVE); PH,URINE 5.5 (5.0-8.0); PROTEIN,URINE 1+ mg/dl (NEGATIVE); UGLUCOSE NEGATIVE (NEGATIVE)
[2022-03-21 05:19] LABS: BACTERIA,URINE Many /HPF (None Seen); RBC,URINE 0-2 /HPF (0-2)
[2022-03-21 05:20] LABS: SQUAMOUS EPITHELIAL CELL,UR Few /HPF (None Seen)
--- NOTE | 2022-03-21 07:35 | NUR ---
PT COMPLAINED OF GENERALIZED BODY PAIN 01/09; DR SOFIA MADE AWARE W/ ORDER FOR MORPHINE 4MG IV. ORDER WAS READ BACK AND VERIFIED.
[2022-03-21] MEDS ORDERED: MORPHINE SULFATE INJ 4 MG/ML DISP.SYRIN ONE ×2 (07:40→17:50)
[2022-03-21] MEDS ORDERED: MORPHINE SULFATE INJ 2 MG/ML DISP.SYRIN IV ONE ×2 (08:00→18:00)
--- NOTE | 2022-03-21 09:04 | NUR ---
CALLED [facility] AND SPOKE WITH SALINAS REGARDING BARIATRIC [facility] TRANSPORT. ETA IS 1150 AM.
--- NOTE | 2022-03-21 10:17 | NUR ---
[facility] CALL[facility] AND [facility]POKE [facility] [place]. TRANSFER TO [facility] UNDER AND ROOM IS MED SURG 4008. NUMBER FOR REPORT IS [phone]. S TRANSPORT ETA IS 1150.
--- NOTE | 2022-03-21 11:18 | NUR ---
NURSE MARTA THORNE AT [facility] NOT YET AVAILABLE FOR REPORT.
--- NOTE | 2022-03-21 11:53 | NUR ---
SPOKE W/ CHARGE NURSE AT [facility]; PER CHARGE NURSE, "BED BOARD" INFORMED THEM THAT PT IS NOT STABLE FOR TRANSFER TO THEIR FACILITY AND THEY WOULD NOT BE TAKING THE PATIENT.
--- NOTE | 2022-03-21 11:55 | NUR ---
CALLED [facility] AND SPOKE W/ YOSEPH AND INFORMED ABT PT NOT BEING ACCEPTED TO [facility]; PER YOSEPH, MANJU GOSS WILL CALL AND SPEAK W/ ER DOCTOR.
--- NOTE | 2022-03-21 12:14 | NUR ---
SPOKE W/ LADARIUS, [facility] ASSURANCE ASSISTANT. PER LADARIUS, PT IS STILL ACCEPTED AT [facility], SAME ROOM. HOWEVER, BARIATRIC BED WAS CANCELLED AT [place] AND WILL HAVE TO BE REORDERED AGAIN; ONCE BARIATRIC BED HAS BEEN REORDERED, [facility] IS OKAY TO GIVE REPORT TO [facility].
--- NOTE | 2022-03-21 16:10 | NUR ---
ACCEPTANCE INFO: ETA 1730 [facility] DIRECT ADMIT ROOM [id number] [phone] [facility] [facility] LADARIUS
--- NOTE | 2022-03-21 16:35 | NUR ---
CALLED [facility] FOR REPORT, RN ASSIGNED IS MARTA ARRINGTON; WILL CALL BACK FOR REPORT, AWAITING BARIATRIC BED TO THEIR UNIT.
--- NOTE | 2022-03-21 17:17 | NUR ---
MURPHY FROM [facility] CALLED FOR EUSEBIO, CALLBACK NUMBER [phone]
--- NOTE | 2022-03-21 17:28 | NUR ---
PT REPORT GIVEN TO MANJU ARRINGTON RN
--- NOTE | 2022-03-21 17:46 | NUR ---
EMT AT BEDSIDE TO PICKUP PT; ENDORSEMENT GIVEN
--- NOTE | 2022-03-21 17:49 | NUR ---
INFORMED DR GRAHAM THAT PT COMPLAINED OF BODY PAIN 01/09; PER , OK FOR PT TO HAVE SAME DOSE OF MORPHINE 4MG IV. ORDER READ BACK AND VERIFIED.
--- NOTE | 2022-03-21 17:55 | NUR ---
NUNES NASHP CALLED AND SPOKE WITH [facility] AND PROVIDED UPDATED VITALS
[2022-03-21 17:56] VITALS: BP 121/70
--- NOTE | 2022-03-21 18:18 | NUR ---
Patient discharged to [facility] in stable condition via rsaint ignace, accompanied by 4 account liaison hospice. Written and verbal after care instructions given. Patient verbalizes understanding of instruction.
== END 2022-03-21 18:30 | disposition short-term general hospital (02) ==
LOC: ER 13:37
DX: M25.561 Pain in right knee (principal); E11.40 Type 2 diabetes mellitus with diabetic neuropathy, unspecified; E87.5 Hyperkalemia; D72.829 Elevated white blood cell count, unspecified; Z20.822 Contact with and (suspected) exposure to COVID-19; D68.1 Hereditary factor XI deficiency; E03.9 Hypothyroidism, unspecified; J96.10 Chronic respiratory failure, unspecified whether with hypoxia or hypercapnia; Z99.81 Dependence on supplemental oxygen; E66.2 Morbid (severe) obesity with alveolar hypoventilation; Z68.44 Body mass index [BMI] 60.0-69.9, adult; Z79.84 Long term (current) use of oral hypoglycemic drugs; M17.0 Bilateral primary osteoarthritis of knee; Z79.899 Other long term (current) drug therapy; Z79.4 Long term (current) use of insulin; Z79.82 Long term (current) use of aspirin; Z91.81 History of falling
CPT/HCPCS: 99285; 96374; 71045; 87426; 73564 ×2; 85025; 80048; 80076; 36415; 87081; 96376; 87086; 81001; J2270 ×3; C9803